=== PATIENT | male | born 1955 | race Caucasian/White ===

== ENCOUNTER 2020-12-03 09:33 | Outpatient (CLI) | payer MEDICARE, SELFPAY ==
--- NOTE | ~2020-12-03 | CT_ITS ---
EXAMINATION:CT chest high resolution wo nv DATE: 12/03/2020 10:16 INDICATION: Left chest pain. TECHNIQUE: Computed tomography (CT) of the chest was performed without intravenous contrast. Automate d exposure control and iterative reconstruction technique were employed. The dose-length product (DLP ) was 367.73 mGy-cm. COMPARISON: CT abdomen and pelvis 06/15/2017 FINDINGS: The lungs demonstrate mild atelectasis. There is a small pneumatocele in right upper lobe. No pleural effusion. The heart size is normal. No pericardial effusion. There is bilateral gynecomast ia. There is a 2.3 cm cyst in right kidney. There are cysts in the liver measuring up to 10 mm. There is mild thoracic spondylosis. There is mild chronic anterior wedging of multiple midthoracic vertebr al bodies. IMPRESSION: 1. No etiology for the patient's symptoms. Reviewed, dictated and finalized at location A.
== END 2020-12-03 09:34 | disposition home or self-care (01) ==
LOC: CHSIMG 09:35
PROVIDERS: PCP Family Medicine; Visit Provider Family Medicine
DX: R07.89 Other chest pain (principal)
CPT/HCPCS: 71250

== ENCOUNTER 2020-12-04 08:08 | Outpatient (CLI) | payer MEDICARE, SELFPAY ==
[2020-12-04 08:18] LABS: Basophils Absolute Auto 0.03 K/mm3 (0.00-0.10); Basophils Percent Auto 0.4 % (0.0-1.0); Eosinophils Absolute Auto 0.14 K/mm3 (0.02-0.50); Hematocrit 48.8 % (37.0-46.0); Hemoglobin 16.3 g/dL (12.4-15.3); Immature Granulocyte Absolute 0.02 K/mm3 (0.00-0.00); Immature Granulocyte Percent A 0.3 % (0.0-0.0); Lymphocytes Absolute Auto 1.55 K/mm3 (1.10-4.50); Lymphocytes Percent Auto 21.9 % (18.0-42.0); Mean Corpuscular HGB Conc 33.4 g/dL (32.0-36.0); Mean Corpuscular Hemoglobin 29.7 pg (27.0-31.0); Mean Corpuscular Volume 88.9 fL (78.0-102.0); Mean Platelet Volume 10.6 fl (8.7-11.0); Monocytes Absolute Auto 0.53 K/mm3 (0.10-0.90); Monocytes Percent Auto 7.5 % (2.0-11.0); Neutrophils Absolute Auto 4.8 K/mm3 (1.7-7.2); Neutrophils Percent Auto 67.9 % (50.0-70.0); Platelet Count Result 164 K/mm3 (150-420); Red Blood Count 5.49 M/mm3 (4.70-6.10); Red Cell Distribution Width 12.4 % (11.6-14.4); White Blood Count 7.1 K/mm3 (4.8-10.8)
[2020-12-04 09:29] LABS: Alanine Aminotransferase 31 U/L (16-63); Albumin Level 3.8 g/dL (3.4-5.0); Alkaline Phosphatase 78 U/L (46-116); Anion Gap 7 mmol/L (8-16); Aspartate Amino Transferase 20 U/L (15-37); Bilirubin,Total 0.6 mg/dL (0.00-1.00); Blood Urea Nitrogen 21 mg/dL (7-18); Carbon Dioxide 30 mmol/L (21-32); Chloride 104 mmol/L (98-108); Cholesterol 200 mg/dL (0-200); Estimated Glomerular Filt Rate > 60; Glucose 97 mg/dL (70-99); HDL Direct 47 mg/dL (40-60); LDL Cholesterol Calculated 141 mg/dL (<130); Osmolality Calculated 295 mOsm/kg (285-295); Potassium 4.6 mmol/L (3.5-5.1); Prostate Specific Antigen 1.6 ng/mL (< OR = 4.0); Sodium 141 mmol/L (136-145); Total Protein 7.1 g/dL (6.4-8.2); Triglycerides 61 mg/dL (0-150)
== END 2020-12-04 08:09 | disposition home or self-care (01) ==
LOC: CHSLAB 08:10
PROVIDERS: PCP Family Medicine; Visit Provider Family Medicine
DX: R03.0 Elevated blood-pressure reading, without diagnosis of hypertension (principal); E78.5 Hyperlipidemia, unspecified; N40.0 Benign prostatic hyperplasia without lower urinary tract symptoms
CPT/HCPCS: 36415; 80053; 80061; 84153; 85025

== ENCOUNTER 2023-08-18 07:30 | Emergency (ER) | payer MEDICARE, SELFPAY ==
[2023-08-18 07:31] VITALS: BP 168/108; PULSE 97; RESP 18; TEMP 36.7; O2SAT 97
[2023-08-18 07:55] LABS: Appearance Urine Clear (Clear); Bilirubin Urine Negative (Negative); Blood Urine 2+ (Negative); Color Urine Light Yellow (Yellow); Glucose Urine UA Negative (Negative); Ketones Urine Negative (Negative); Leukocyte Esterase Ur Negative LEU/UL (Negative); Nitrate Urine Negative (Negative); Protein Urine Negative (Negative); Urobilinogen Urine 0.2 mg/dL (0.2-1.0)
[2023-08-18 08:01] LABS: Add Urine Microscopic? YES; Bacteria Urine Rare /hpf
--- NOTE | 2023-08-18 08:09 | ED.MALEGU ---
HPI - Male Genitourinary General Chief complaint: Urogenital-Male Stated complaint: unable to void Time Seen by Provider: 08/18/23 07:39 Source: patient and family Mode of arrival: ambulatory Limitations: no limitations History of Present Illness HPI Narrative: this is a 60-year-old male that presents with some difficulty passing urine suprapubic tenderness with no flank pain no fever chills no nausea vomiting. Patient has a history of Guillain-[place] syndrome currently no shortness on breath no chest pain. Onset (ago): hour(s) Duration: constant Severity: moderate Related Data Home Medications Medication Instructions Recorded Confirmed Lactobacillus acidophilus 250 100 mmu cells PO DAILY 03/14/19 08/18/23 million cell capsule (Probiotic Acidophilus) multivitamin 1 cap PO DAILY 03/14/19 08/18/23 vitamin B complex (B 1 tablet PO DAILY 11/14/19 08/18/23 Complex-Vitamin B12 tablet) Allergies Allergy/AdvReac Type Severity Reaction Status Date / Time No Known Allergies Allergy Verified 08/18/23 07:47 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 Left-sided chest wall pain Tinnitus of both ears Surgical History Surgical History History of knee joint replacement Family History Family History Father Cerebrovascular accident Patient's father is , Onset Age: 89 Mother Family history of Alzheimer's disease Patient's mother is , Onset Age: 89 Sibling Family history of lung cancer Diabetes mellitus Family history of malignant neoplasm of breast in first degree relative, Onset Age: 55 Father Hypertension Social History Social History Smoking status: Never smoker Alcohol intake: never Substance use: never Exam Const: General: healthy appearing and no acute distress Nutritional Appearance: well nourished Limitations: no limitations Resp: Effort & Inspection: normal respiratory effort Auscultation: clear to auscultation bilaterally Cardio: Rate: regular rate Rhythm: regular rhythm GI: GI Palp: Yes Soft to palpation Auscultation: normal bowel sounds : General: Yes Bladder palpation abnormal ( Suprapubic tenderness) and Yes no CVA tenderness Male General Exam: Yes normal external exam Back/Spine/Pelvis: Back: no CVA tenderness Skin: General skin exam: normal color Rashes: no rashes Neuro: General: patient oriented x3, moves all extremities and no meningeal signs Extrem: General: normal to inspection, no clubbing, cyanosis or edema and no pedal edema Course Course Emergency Course: patient with difficulty passing urine has a history of Guillain-[place] syndrome Gunn catheter placed and 900cc of clear urine. UA performed which shows some 5 to 10 red cells otherwise no urinary tract infection. Vital Signs Vital signs: Vital Signs Temperature 36.7 C 08/18/23 07:31 Pulse Rate 97 08/18/23 07:31 Respiratory Rate 18 08/18/23 07:31 Blood Pressure 168/108 H 08/18/23 07:31 Pulse Oximetry 97 08/18/23 07:31 Oxygen Delivery Room Air 08/18/23 07:31 Temperature 36.7 C 08/18/23 07:31 Pulse Rate 97 08/18/23 07:31 Respiratory Rate 18 08/18/23 07:31 Blood Pressure 168/108 H 08/18/23 07:31 Pulse Oximetry 97 08/18/23 07:31 Oxygen Delivery Room Air 08/18/23 07:31 MDM - Male Genitourinary Lab Data Labs: Lab Results 08/18/23 Range/Units 07:51 Urine Color Light yellow (Yellow) Urine Appearance Clear (Clear) Urine pH 6.0 (5.0-8.0) Ur Specific [place]
[2023-08-18 08:31] VITALS: BP 158/94
--- NOTE | 2023-08-18 08:38 | PC.NURSE ---
PT LEAVING WITH JOE CATH IN PLACE PT WANTED TO KEEP LARGE URINE BAG PT SHOWN HOW TO EMPTY BAG PT WILL FOLLOW UP WITH DR WOLFF
== END 2023-08-18 08:39 | disposition home or self-care (01) ==
PROVIDERS: Emergency Provider Emergency Medicine; PCP Family Medicine
DX: R33.9 Retention of urine, unspecified (principal)
CPT/HCPCS: 81001; 99283

== ENCOUNTER 2023-09-27 12:22 | Outpatient (CLI) | payer MEDICARE, SELFPAY ==
[2023-09-27 12:32] LABS: Basophils Absolute Auto 0.04 K/mm3 (0.00-0.10); Basophils Percent Auto 0.6 % (0.0-1.0); Eosinophils Absolute Auto 0.13 K/mm3 (0.02-0.50); Eosinophils Percent Auto 1.9 % (1.0-6.0); Hematocrit 48.9 % (37.0-46.0); Hemoglobin 16.4 g/dL (12.4-15.3); Immature Granulocyte Absolute 0.02 K/mm3 (0.00-0.00); Immature Granulocyte Percent A 0.3 % (0.0-0.0); Lymphocytes Absolute Auto 1.38 K/mm3 (1.10-4.50); Lymphocytes Percent Auto 19.8 % (18.0-42.0); Mean Corpuscular HGB Conc 33.5 g/dL (32-36); Mean Corpuscular Hemoglobin 29.1 pg (27.0-31.0); Mean Corpuscular Volume 86.9 fL (78.0-102.0); Monocytes Percent Auto 7.2 % (2.0-11.0); Neutrophils Absolute Auto 4.91 K/mm3 (1.70-7.20); Neutrophils Percent Auto 70.2 % (50.0-70.0); Platelet Count Result 166 K/mm3 (150-420); Red Blood Count 5.63 M/mm3 (4.70-6.10); Red Cell Distribution Width 12.7 % (11.6-14.4)
[2023-09-27 19:15] LABS: Alanine Aminotransferase 28 U/L (16-63); Alkaline Phosphatase 81 U/L (46-116); Aspartate Amino Transferase 24 U/L (15-37); Bilirubin,Total 0.5 mg/dL (0.00-1.00); Blood Urea Nitrogen 22 mg/dL (7-18); Calcium 8.7 mg/dL (8.5-10.1); Chloride 105 mmol/L (98-108); Cholesterol 232 mg/dL (0-200); Estimated Glomerular Filt Rate > 60; Glucose 96 mg/dL (70-99); HDL Direct 52 mg/dL (40-60); LDL Cholesterol Calculated 163 mg/dL (<130); Osmolality Calculated 297 mOsm/kg (285-295); Potassium 4.4 mmol/L (3.5-5.1); Sodium 142 mmol/L (136-145); Total Protein 7.6 g/dL (6.4-8.2); Triglycerides 86 mg/dL (0-150)
[2023-09-27 19:34] LABS: Anion Gap 14 mmol/L (4-12); Carbon Dioxide 23 mmol/L (21-32)
[2023-09-27 19:35] LABS: Thyroid Stimulating Hormone Reflex 0.64 u/IU/mL (0.36-3.74)
== END 2023-09-27 12:23 | disposition home or self-care (01) ==
LOC: CHSLAB 12:24
PROVIDERS: PCP Family Medicine; Visit Provider Family Medicine
DX: E03.9 Hypothyroidism, unspecified (principal); E78.5 Hyperlipidemia, unspecified; G61.0 Guillain-Barre syndrome
CPT/HCPCS: 36415; 80053; 80061; 84443; 85025

== ENCOUNTER 2023-11-29 00:41 | Day surgery (SDC) | payer MEDICARE, SELFPAY ==
[2023-11-14 12:16] VITALS: BMI 32.3
[2023-11-29 06:50] VITALS: BP 138/92; PULSE 77; RESP 18; TEMP 36.2; O2SAT 97
[2023-11-29] MEDS: LACTATED RINGERS 1,000 ML 150 ML IV CONT (06:58)
--- NOTE | 2023-11-29 07:26 | WPDANESEPPF ---
Anes - Initial Pre Proc Eval Procedure: Operation Date: 11/29/23 08:00 Proposed Procedures p Colonoscopy - Hadley Herndon MD Date/Time: 11/29/23 07:26 Surgeon: Hadley Herndon MD Pre Op Diagnosis: fecal abnormalities Patient Data Age: 68 Gender: M Height: 1.8 m Weight: 104.8 kg Last Vital Signs Temp 97.2 F L 11/29/23 06:50 Pulse 77 11/29/23 06:50 Resp 18 11/29/23 06:50 BP 138/92 H 11/29/23 06:50 Pulse Ox 97 11/29/23 06:50 O2 Del Method Room Air 11/29/23 06:50 Allergies Allergy/AdvReac Type Severity Reaction Status Date / Time No Known Allergies Allergy Verified 11/29/23 06:49 Home Medications Medication Instructions Recorded Confirmed Type Lactobacillus acidophilus 250 100 mmu cells PO DAILY 03/14/19 11/29/23 History million cell capsule (Probiotic Acidophilus) multivitamin 1 cap PO DAILY 03/14/19 11/29/23 History vitamin B complex (B 1 tablet PO DAILY 11/14/19 11/29/23 History Complex-Vitamin B12 tablet) tamsulosin 0.4 mg capsule See Rx Instructions .Route 11/30/21 11/29/23 Rx .COMPLEX #30 caps finasteride 5 mg tablet See Rx Instructions .Route 12/29/21 11/29/23 Rx .COMPLEX #30 tabs atorvastatin 40 mg tablet 40 mg PO DAILY #90 tabs 09/28/23 11/29/23 Rx Patient hx anesthesia problems: none Family hx anesthesia problems: none Results Review: All pre-operative results and documents have been reviewed as part of the pre-operative evaluation. 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 Left-sided chest wall pain Tinnitus of both ears Surgical History Surgical History History of knee joint replacement Family History Family History Father Cerebrovascular accident Patient's father is , Onset Age: 89 Mother Family history of Alzheimer's disease Patient's mother is , Onset Age: 89 Sibling Family history of lung cancer Diabetes mellitus Family history of malignant neoplasm of breast in first degree relative, Onset Age: 55 Father Hypertension Social History Social History Smoking status: Never smoker Alcohol intake: never Substance use: never Living arrangements: with family Spiritual care concerns: No Anes - Eval Final PreProcedure Day of Procedure 11/29/23 07:26 Patient weight: normal Heart: regular rate and rhythm Lungs: clear to auscultation Airway: Mallampati scale class III Neurological: alert and oriented Last oral intake: >/= 8 hours ASA classification: III Emergent: no Anesthetic plan: proceed Anesthesia type and monitoring: general GIVS and standard monitoring Results Review: All pre-operative results and documents have been reviewed as part of the pre-operative evaluation. Informed Consent: The patient's anesthetic plan and its attendant risks and benefits were discussed with the patient/family/POA. Questions were solicited and answers provided to the satisfaction of the patient/family/POA.
--- NOTE | 2023-11-29 07:54 | PM.IMHP ---
H&P: HPI History of Present Illness Date/Time: 11/29/23 07:54 Chief Complaint: Screening colonoscopy Narrative: The patient here for his 1st screening colonoscopy. There are no GI complaints. There is no family history of colorectal cancer. 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 Left-sided chest wall pain Tinnitus of both ears Surgical History Surgical History History of knee joint replacement Family History Family History Father Cerebrovascular accident Patient's father is , Onset Age: 89 Mother Family history of Alzheimer's disease Patient's mother is , Onset Age: 89 Sibling Family history of lung cancer Diabetes mellitus Family history of malignant neoplasm of breast in first degree relative, Onset Age: 55 Father Hypertension Social History Social History Smoking status: Never smoker Alcohol intake: never Substance use: never Living arrangements: with family Spiritual care concerns: No Meds Home Medications and Allergies Home Medications Medication Instructions Recorded Confirmed Type Lactobacillus acidophilus 250 100 mmu cells PO DAILY 03/14/19 11/29/23 History million cell capsule (Probiotic Acidophilus) multivitamin 1 cap PO DAILY 03/14/19 11/29/23 History vitamin B complex (B 1 tablet PO DAILY 11/14/19 11/29/23 History Complex-Vitamin B12 tablet) tamsulosin 0.4 mg capsule See Rx Instructions .Route 11/30/21 11/29/23 Rx .COMPLEX #30 caps finasteride 5 mg tablet See Rx Instructions .Route 12/29/21 11/29/23 Rx .COMPLEX #30 tabs atorvastatin 40 mg tablet 40 mg PO DAILY #90 tabs 09/28/23 11/29/23 Rx Allergies Allergy/AdvReac Type Severity Reaction Status Date / Time No Known Allergies Allergy Verified 11/29/23 06:49 Vital Signs Vital Signs - 24 hr 11/29/23 06:50 Temperature 97.2 F L Pulse Rate 77 Respiratory Rate 18 Blood Pressure 138/92 H Pulse Oximetry 97 Oxygen Delivery Room Air Assessment and Plan Assessment and plan (1) Screening for malignant neoplasm of colon: Code(s): Z12.11 - Encounter for screening for malignant neoplasm of colon Status: Acute Plan Patient deemed a good candidate for colonoscopy. Will proceed.
--- NOTE | 2023-11-29 08:04 | PM.IMHP ---
H&P: HPI History of Present Illness Date/Time: 11/29/23 08:04 Chief Complaint: screening colonoscopy Narrative: the patient here for his 1st screening colonoscopy. No family history of colorectal cancer. 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 Left-sided chest wall pain Tinnitus of both ears Surgical History Surgical History History of knee joint replacement Family History Family History Father Cerebrovascular accident Patient's father is , Onset Age: 89 Mother Family history of Alzheimer's disease Patient's mother is , Onset Age: 89 Sibling Family history of lung cancer Diabetes mellitus Family history of malignant neoplasm of breast in first degree relative, Onset Age: 55 Father Hypertension Social History Social History Smoking status: Never smoker Alcohol intake: never Substance use: never Living arrangements: with family Spiritual care concerns: No Meds Home Medications and Allergies Home Medications Medication Instructions Recorded Confirmed Type Lactobacillus acidophilus 250 100 mmu cells PO DAILY 03/14/19 11/29/23 History million cell capsule (Probiotic Acidophilus) multivitamin 1 cap PO DAILY 03/14/19 11/29/23 History vitamin B complex (B 1 tablet PO DAILY 11/14/19 11/29/23 History Complex-Vitamin B12 tablet) tamsulosin 0.4 mg capsule See Rx Instructions .Route 11/30/21 11/29/23 Rx .COMPLEX #30 caps finasteride 5 mg tablet See Rx Instructions .Route 12/29/21 11/29/23 Rx .COMPLEX #30 tabs atorvastatin 40 mg tablet 40 mg PO DAILY #90 tabs 09/28/23 11/29/23 Rx Allergies Allergy/AdvReac Type Severity Reaction Status Date / Time No Known Allergies Allergy Verified 11/29/23 06:49 Vital Signs Vital Signs - 24 hr 11/29/23 06:50 Temperature 97.2 F L Pulse Rate 77 Respiratory Rate 18 Blood Pressure 138/92 H Pulse Oximetry 97 Oxygen Delivery Room Air Assessment and Plan Assessment and plan (1) Screening for malignant neoplasm of colon: Code(s): Z12.11 - Encounter for screening for malignant neoplasm of colon Status: Acute Plan Patient is deemed appropriate candidate for colonoscopy. Will proceed.
[2023-11-29] MEDS: SIMETHICONE ORAL SUSPENSION 20 MG/0.3 ML 30 ML BOTTLE 0.6 ML IRRIGATION (08:15)
[2023-11-29 08:35] VITALS: BP 120/86; PULSE 72; RESP 20; O2SAT 98
[2023-11-29 08:45] VITALS: BP 132/82; PULSE 58; RESP 20; O2SAT 99
[2023-11-29 08:55] VITALS: BP 138/70; PULSE 58; RESP 19; O2SAT 100
== END 2023-11-29 09:06 | disposition home or self-care (01) ==
PROVIDERS: PCP Family Medicine; Referring Provider Family Medicine; Visit Provider Internal Medicine Gastroenterology
PROC: 0DJD8ZZ Inspection of Lower Intestinal Tract, Via Natural or Artificial Opening Endoscopic (ICD-10-PCS; CPT 45378; principal; 2023-11-29 08:00)
DX: Z12.11 Encounter for screening for malignant neoplasm of colon (principal); D12.2 Benign neoplasm of ascending colon; D12.8 Benign neoplasm of rectum; K63.5 Polyp of colon; K64.0 First degree hemorrhoids; K57.30 Diverticulosis of large intestine without perforation or abscess without bleeding; N40.0 Benign prostatic hyperplasia without lower urinary tract symptoms; E78.5 Hyperlipidemia, unspecified; G61.0 Guillain-Barre syndrome; Z98.890 Other specified postprocedural states; Z80.1 Family history of malignant neoplasm of trachea, bronchus and lung; Z80.3 Family history of malignant neoplasm of breast; Z82.49 Family history of ischemic heart disease and other diseases of the circulatory system
CPT/HCPCS: 45385; 88305; J2003; J2704; J7120

== ENCOUNTER 2024-10-15 10:37 | Outpatient (CLI) | payer MEDICARE, SELFPAY ==
[2024-10-15 10:50] LABS: Hematocrit 49.5 % (37.0-46.0); Hemoglobin 16.0 g/dL (12.4-15.3); Immature Granulocyte Percent A 0.4 % (0.0-0.0); Lymphocytes Absolute Auto 1.27 K/mm3 (1.10-4.50); Mean Corpuscular HGB Conc 32.3 g/dL (32-36); Mean Corpuscular Hemoglobin 28.8 pg (27.0-31.0); Mean Corpuscular Volume 89.0 fL (78.0-102.0); Nucleated Red Blood Cells Absolute Auto 0.00 K/mm3 (0.00-0.00); Nucleated Red Blood Cells Perc 0.0 % (0-0.0); Platelet Count Result 163 K/mm3 (150-420); Red Blood Count 5.56 M/mm3 (4.70-6.10); White Blood Count 7.6 K/mm3 (4.8-10.8)
[2024-10-15 11:30] LABS: Alanine Aminotransferase 23 U/L (6-50); Albumin Level 4.5 g/dL (3.5-5.1); Alkaline Phosphatase 79 U/L (38-126); Anion Gap 7 mmol/L (4-12); Aspartate Amino Transferase 34 U/L (17-59); Bilirubin,Total 0.9 mg/dL (0.2-1.3); Blood Urea Nitrogen 18 mg/dL (9-20); Calcium 9.8 mg/dL (8.4-10.2); Carbon Dioxide 29 mmol/L (22-30); Chloride 103 mmol/L (98-107); Cholesterol 144 mg/dL (0-200); Estimated Glomerular Filt Rate > 60; Glucose 101 mg/dL (65-110); HDL Direct 54 mg/dL; Osmolality Calculated 289 mOsm/kg (285-295); Potassium 4.9 mmol/L (3.4-5.0); Sodium 139 mmol/L (137-145); Total Protein 7.4 g/dL (6.3-8.2); Triglycerides 66 mg/dL (<150)
[2024-10-15 12:01] LABS: Prostate Specific Antigen 1.7 ng/mL (< OR = 4.0); Thyroid Stimulating Hormone Reflex 0.615 uIU/mL (0.465-4.68)
== END 2024-10-15 10:38 | disposition home or self-care (01) ==
LOC: CHSLAB 10:39
PROVIDERS: PCP Family Medicine; Visit Provider Family Medicine
DX: R35.1 Nocturia (principal); E03.9 Hypothyroidism, unspecified; I10 Essential (primary) hypertension; Z12.5 Encounter for screening for malignant neoplasm of prostate
CPT/HCPCS: 36415; 80053; 80061; 84153; 84443; 85025; G0103